=== PATIENT | female | born 2000 | race Caucasian/White ===

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

== ENCOUNTER → 2022-01-04 14:05 | Outpatient (BNVA) | payer MEDICAID, SELFPAY | PROVIDERS: Visit Provider Advanced Practice Midwife | DX: Z32.01 Encounter for pregnancy test, result positive (principal); Z36.3 Encounter for antenatal screening for malformations | CPT/HCPCS: 81025; 99212 ==

== ENCOUNTER 2022-01-12 13:00 | Outpatient (REF) | payer MEDICAID, SELFPAY ==
--- NOTE | ~2022-01-12 | US_ITS ---
EXAMINATION: OBSTETRICAL ULTRASOUND, FIRST TRIMESTER HISTORY: 21-year-old at the 8.5 weeks of gestation LMP: 11/12/2021 COMPARISON: None TECHNIQUE: Real time transabdominal imaging with color and M-mode Doppler. FINDINGS: A single, live IUP CRL of 18.9 mm c/w 8.3wks is noted. Heart Rate: 169 beats per minute. Both maternal ovaries are seen and appear normal. GESTATIONAL AGE: 1. GA from LMP: 8.7 wks 2. GA from AUA: 8.3 wks ESTIMATED DATE OF DELIVERY: 1. VALORIE from LMP: 08/19/2022 2. VALORIE from AUA: 08/21/2022 US/US OB <= 14 weeks fetus IMPRESSION: 1. A single live IUP 2. Size equals dates 3. Normal ovaries Follow-up at approximately 12 weeks of gestation is suggested (not scheduled). Thank you very much for this referral. This note was generated with a voice recognition program. Please excuse any errors which may have been overlooked during my review of this note. Sometimes these errors may affect the content or meaning of a given sentence.
== END 2022-01-12 13:01 | disposition home or self-care (01) ==
LOC: HO.US 13:00
PROVIDERS: Visit Provider Advanced Practice Midwife
DX: O35.9XX0 Maternal care for (suspected) fetal abnormality and damage, unspecified, not applicable or unspecified (principal); Z3A.08 8 weeks gestation of pregnancy
CPT/HCPCS: 76801

== ENCOUNTER → 2022-01-22 14:23 | Outpatient (BNVA) | payer MEDICAID, SELFPAY | PROVIDERS: Visit Provider Advanced Practice Midwife | DX: Z13.89 Encounter for screening for other disorder (principal) ==

== ENCOUNTER → 2022-02-05 13:55 | Outpatient (BNVA) | payer MEDICAID, SELFPAY | PROVIDERS: Visit Provider Advanced Practice Midwife | DX: Z32.01 Encounter for pregnancy test, result positive (principal); Z36.3 Encounter for antenatal screening for malformations; O26.891 Other specified pregnancy related conditions, first trimester; I95.1 Orthostatic hypotension; Z3A.11 11 weeks gestation of pregnancy; Z82.3 Family history of stroke | CPT/HCPCS: 99212 ==

== ENCOUNTER 2022-02-06 17:53 | Emergency (ER) | payer MEDICAID, SELFPAY ==
--- NOTE | 2022-02-06 19:13 | ECG_ITS ---
Test Reason : SYNCOPE Blood Pressure : / mmHG Vent. Rate : 071 BPM Atrial Rate : 071 BPM P-R Int : 104 ms QRS Dur : 088 ms QT Int : 392 ms P-R-T Axes : 000 086 -38 degrees QTc Int : 425 ms Sinus rhythm with short NC T wave abnormality, consider inferior ischemia T wave abnormality, consider anterior ischemia Abnormal ECG When compared with ECG of 11-NOV-2019 15:07, T wave inversion now evident in Inferior leads T wave inversion now evident in Anterior leads Referred By: Generic ED Physician Electronically Signed By:King Helton
[2022-02-06 19:14] VITALS: BP 98/60; PULSE 64; RESP 19; TEMP 36.8; O2SAT 98; BMI 18.8
[2022-02-06 19:31] LABS: MANUAL DIFF FLAG NO
[2022-02-06 19:34] LABS: Basophils Percent Auto 0.4 % (0-2); Eosinophils Percent Auto 0.3 % (0-4); Hematocrit 34.7 % (37.0-47.0); Hemoglobin 11.9 g/dl (12.0-16.0); Imm Gran Abs Auto 0.04 X10*3/uL (0.00-0.03); Imm Gran Pct Auto 0.4 % (0.0-0.4); Lymphocytes Absolute Auto 1.4 X10*3/uL (1.2-4.9); Lymphocytes Percent Auto 14.1 % (20-40); Mean Corpuscular HGB Conc 34.3 g/dl (31.0-35.0); Mean Corpuscular Hemoglobin 32.2 pg (27.0-33.0); Mean Corpuscular Volume 93.8 fL (80.0-98.0); Mean Platelet Volume 10.2 fL (9.4-12.3); Monocytes Absolute Auto 0.6 X10*3/uL (0.1-1.2); Monocytes Percent Auto 5.9 % (2-11); Neutrophils Absolute Auto 7.5 x10*3/uL (2.0-8.3); Neutrophils Percent Auto 78.9 % (45-73); Platelet Count 190 X10*3/uL (160-400); Red Cell Distribution Width 12.3 % (11.0-16.0); White Blood Count 9.6 X10*3/uL (4.8-10.8)
[2022-02-06 19:45] LABS: Anion Gap 11 (12-20); Blood Urea Nitrogen 8 mg/dL (9-16); Calcium 8.9 mg/dL (8.4-10.2); Carbon Dioxide 22 mmol/L (22-29); Chloride 105 mmol/L (96-108); Creatinine Clr Calc Pharmacy 127.4; Estimated Glomerular Filt Rate > 60; Glucose Random 78 mg/dL (60-115); Potassium 3.7 mmol/L (3.3-5.1); Sodium 134 mmol/L (135-145)
[2022-02-06 19:51] LABS: Troponin-I High Sensitivity < 3.5 ng/L (<3.5-17.0)
== END 2022-02-06 20:05 | disposition left against medical advice (07) ==
PROVIDERS: Emergency Provider Emergency Medicine
DX: O26.899 Other specified pregnancy related conditions, unspecified trimester (principal); R55 Syncope and collapse; Z3A.00 Weeks of gestation of pregnancy not specified
CPT/HCPCS: 36415; 80048; 84484; 85025; 93005; 99282; 99283

== ENCOUNTER 2022-02-19 08:02 | Outpatient (REF) | payer MEDICAID, SELFPAY ==
[2022-02-19 16:02] LABS: CT PCR NOT DETECTED (Not Detect.); NG PCR NOT DETECTED (Not Detect.)
== END 2022-02-19 08:03 | disposition home or self-care (01) ==
LOC: HO.LAB 08:02
PROVIDERS: Visit Provider Advanced Practice Midwife
DX: Z34.92 Encounter for supervision of normal pregnancy, unspecified, second trimester (principal); Z3A.13 13 weeks gestation of pregnancy
CPT/HCPCS: 81003; 87491; 87591; 99212

== ENCOUNTER 2022-02-23 12:28 | Outpatient (REF) | payer MEDICAID, SELFPAY ==
--- NOTE | ~2022-02-23 | US_ITS ---
EXAMINATION: OBSTETRICAL ULTRASOUND, FIRST TRIMESTER HISTORY: 22-year-old at 14.5 weeks of gestation NT screening COMPARISON: 01/12/2022 TECHNIQUE: Real time transabdominal imaging with color and M-mode Doppler. FINDINGS: A single, live IUP CRL of 95.2 mm c/w 15.3wks is noted. Heart Rate: 150 beats per minute. BPD: 2.9cm 15 w3 d FL 1.7 cm 15w1d GA by sono 15 w4 d NT was 1.63.mm. NB Present The embryo appears sonographically wnl for this GA. Both maternal ovaries are seen and appear normal. GESTATIONAL AGE: 1. Established GA: 14.5 wks 2. GA from AUA: 15.4 wks ESTIMATED DATE OF DELIVERY: 1. Established VALORIE: 08/19/2022 2. VALORIE from AUA: 08/15/2022 US/US OB 1T nuc measure IMPRESSION: 1. A single live IUP 2. AUA is consistent with the 15.4 weeks which corresponds well with her assigned gestational age of 14.5 weeks. 3. Although she is too far along for an official NT measurement, the nuchal area appeared within normal limits. 4. The embryo appears sonographically normal for this age. MFM Consultation: I reviewed the ultrasound findings along with significance of NT measurement. The NT of less than 3mm is generally reassuring. However, the sensitivity for T21 detection is only 60%. I reviewed the availability of serum aneuploidy screening which includes cell-free DNA and placental protein based tests. I discussed the sensitivity, false-positive rate, and other limitations associated with each test. I also reviewed the availability of invasive diagnostic tests that are associated small but definite risk of miscarriage. We also reviewed the differences between screening tests and diagnostic tests. After our discussion, she opted for the First trimester screening that is based on cell-free DNA or non-invasive testing (NIPT). The result will be faxed to your office in approximately 7 days. A follow up at 18 weeks for survey has been scheduled. Thank you very much for this referral. Total time 30 minutes. The time spent was devoted to counseling the patient about the disease and diagnosis, coordinating care including reviewing her records, pertinent lab data and studies, as well as discussing diagnostic evaluation and workup, plan therapeutic interventions and future disposition of care. This includes any additional research needed to obtain further information in formulating the plan of care of this patient. This note was generated with a voice recognition program. Please excuse any errors which may have been overlooked during my review of this note. Sometimes these errors may affect the content or meaning of a given sentence.
[2022-02-23 14:04] LABS: Hematocrit 38.4 % (37.0-47.0); Hemoglobin 13.3 g/dl (12.0-16.0); Mean Corpuscular HGB Conc 34.6 g/dl (31.0-35.0); Mean Corpuscular Hemoglobin 32.3 pg (27.0-33.0); Mean Corpuscular Volume 93.2 fL (80.0-98.0); Mean Platelet Volume 10.5 fL (9.4-12.3); Platelet Count 224 X10*3/uL (160-400); Red Blood Count 4.12 X10*6/uL (4.20-5.50); Red Cell Distribution Width 12.6 % (11.0-16.0); White Blood Count 8.9 X10*3/uL (4.8-10.8)
[2022-02-23 14:38] LABS: Syphilis Screen Nonreactive (Nonreactive)
[2022-02-23 15:36] LABS: Amphetamine Screen Urine Not Detected (Not Detect); Barbiturates, Urine Not Detected (Not Detect); Benzodiazepines Screen Urine Not Detected (Not Detect); Cannabinoid Screen Urine Not Detected (Not Detect); Cocaine Screen Urine Not Detected (Not Detect); Fentanyl, urine Not Detected (Not Detect); Opiate Screen Urine Not Detected (Not Detect); Phencyclidine Screen Urine Not Detected (Not Detect)
[2022-02-26 08:34] LABS: HBsAGNum1 0.29 S/CO (0.00-0.99); HIV AB/AG Nonreactive (Nonreactive); HIV Num 1 0.07 S/CO (0.00-0.99); Hepatitis B Surface Antigen Negative (Negative); ~HepC Num1 0.11 S/CO (0.00-0.79); ~Hepatitis C Antibody Nonreactive (Nonreactive)
[2022-02-27 17:46] LABS: Varicella IgG Antibody <135.00 index
== END 2022-02-23 12:29 | disposition home or self-care (01) ==
LOC: HO.US 12:28
PROVIDERS: Visit Provider Advanced Practice Midwife
DX: O35.9XX0 Maternal care for (suspected) fetal abnormality and damage, unspecified, not applicable or unspecified (principal); Z82.3 Family history of stroke
CPT/HCPCS: 76813; 80307; 85027; 86762; 86780; 86787; 86803; 86850; 86900; 86901; 87086; 87340; 87389

== ENCOUNTER → 2022-03-19 14:15 | Outpatient (BNVA) | payer MEDICAID, SELFPAY | PROVIDERS: Visit Provider Advanced Practice Midwife | DX: Z34.82 Encounter for supervision of other normal pregnancy, second trimester (principal); Z36.3 Encounter for antenatal screening for malformations; Z3A.17 17 weeks gestation of pregnancy | CPT/HCPCS: 99212 ==

== ENCOUNTER 2022-03-30 12:50 | Outpatient (REF) | payer MEDICAID, SELFPAY ==
--- NOTE | ~2022-03-30 | US_ITS ---
EXAMINATION: US OBSTETRICAL CLINICAL INFORMATION: 22-year-old at 19.5 weeks of gestation Suspected anomaly COMPARISON: 02/23/2022 TECHNIQUE: Real-time transabdominal ultrasound was performed using C1-5 megahertz transducer. FINDINGS: A single, active, fetus is seen in vertex presentation. The placenta is anterior without previa, and the amniotic fluid volume is wnl. MEASUREMENTS: 1. Biparietal Diameter: 4.9 cm; 21.0 wks 2. Occipital Frontal Diameter: 6.5 cm 3. Head Circumference: 18.6 cm; 21.0 wks 4. Abdominal Circumference: 15.1 cm; 20.3 wks 5. Femur Length: 3.3 cm; 20.1 wks 6. Humerus Length: 3.1 cm; 20.1 wks 7. Tibia Length: 2.8 cm; 20.2 wks 8. Ulna Length: 2.8 cm; 20.2 wks 9. Lateral ventricle: 0.7 cm 10. Cerebellum: 2.1 cm; 20.6 wks 11. Cisterna Magna: 0.5 cm 12. Nuchal Fold: 5.4 mm 13. Heart Rate: 144 beats per minute Rt ovary: normal Lt ovary: normal Cervical length 3.2 cm on T/A. GESTATIONAL AGE: 1. Established GA: 19.5 wks 2. GA from [facility]: 20.5 wks ESTIMATED DATE OF DELIVERY: 1. Established VALORIE: 08/19/2022 2. VALORIE from [facility]: 08/12/2022 ANATOMY: The visualized anatomy includes but not limited to: 1. Cranium: Normal 2. Intracranial anatomy: cavum septum pellucidi, lateral ventricles, choroid plexus, cerebellum, posterior fossa, third and fourth ventricles. 3. face: orbits, lip/palate, profile, nasal bone 4. Heart: four-chamber view of the heart, ventricular septum, foramen ovale, pulmonary vein, left and right outflow tracts, three-vessel view, 3 vessel trachea view, aortic and ductal arches, situs.. 5. Diaphragm: Normal 6. Abdominal wall: Normal 7. Cord Insertion: Normal 8. Spine: Cervical, thoracic, lumbar, sacral. 9. Stomach: Normal size and shape 10. Right Kidney: Normal 11. Left Kidney: Normal 12. 3 vessel cord: Normal 13. Upper extremity: Open hands, fifth digit. 14. Lower extremity: Tibia, fibula, bilateral feet. 15. Bladder: Normal 16. Genitalia: Male, patient aware US/US OB /maternal detail IMPRESSION: 1. Single, living, intrauterine with appropriate biometry. 2. Normal survey DISCUSSION: I reviewed today's ultrasound findings. We discussed the limitations of ultrasound in diagnosing aneuploidy and other congenital abnormalities. I reviewed the differences between screening test and diagnostic test. Amniocentesis was discussed and declined. She was informed that the baseline incidence of congenital abnormalities is approximately 3-5%. Not all these conditions are diagnosable in utero. RECOMMENDATIONS: 1. Follow-up when necessary Thank you for allowing me to participate in her care. Total time 20 minutes. The time spent was devoted to counseling the patient about the disease and diagnosis, coordinating care including reviewing her records, pertinent lab data and studies, as well as discussing diagnostic evaluation and workup, plan therapeutic interventions and future disposition of care. This includes any additional research needed to obtain further information in formulating the plan of care of this patient. This note was generated with a voice recognition program. Please excuse any errors which may have been overlooked during my review of this note. Sometimes these errors may affect the content or meaning of a given sentence.
== END 2022-03-30 12:51 | disposition home or self-care (01) ==
LOC: HO.US 12:50
PROVIDERS: Visit Provider Advanced Practice Midwife
DX: O35.9XX0 Maternal care for (suspected) fetal abnormality and damage, unspecified, not applicable or unspecified (principal); Z3A.19 19 weeks gestation of pregnancy
CPT/HCPCS: 76811

== ENCOUNTER → 2022-04-20 13:46 | Outpatient (BNVA) | payer MEDICAID, SELFPAY | PROVIDERS: Visit Provider Advanced Practice Midwife | DX: O99.012 Anemia complicating pregnancy, second trimester (principal); D64.9 Anemia, unspecified; O09.292 Supervision of pregnancy with other poor reproductive or obstetric history, second trimester; O99.412 Diseases of the circulatory system complicating pregnancy, second trimester; I95.1 Orthostatic hypotension; Z3A.22 22 weeks gestation of pregnancy | CPT/HCPCS: 81002; 99212 ==

== ENCOUNTER → 2022-05-21 14:55 | Outpatient (BNVA) | payer MEDICAID, SELFPAY | PROVIDERS: Visit Provider Advanced Practice Midwife | DX: Z34.82 Encounter for supervision of other normal pregnancy, second trimester (principal); Z68.26 Body mass index [BMI] 26.0-26.9, adult | CPT/HCPCS: 81003; 99212 ==

== ENCOUNTER 2022-06-07 08:47 | Outpatient (REF) | payer MEDICAID, SELFPAY ==
[2022-06-07 10:40] LABS: Hematocrit 37.3 % (37.0-47.0); Hemoglobin 12.7 g/dl (12.0-16.0); Mean Corpuscular Volume 99.7 fL (80.0-98.0); Platelet Count 208 X10*3/uL (160-400); Red Blood Count 3.74 X10*6/uL (4.20-5.50); Red Cell Distribution Width 12.6 % (11.0-16.0); White Blood Count 9.1 X10*3/uL (4.8-10.8)
[2022-06-07 11:12] LABS: Glucose 1 Hour PP 50gm Dose 66 mg/dL (60-140)
[2022-06-08 08:30] LABS: Syphilis Screen Nonreactive (Nonreactive)
== END 2022-06-07 08:48 | disposition home or self-care (01) ==
LOC: HO.LAB 08:47
PROVIDERS: Visit Provider Advanced Practice Midwife
DX: Z34.93 Encounter for supervision of normal pregnancy, unspecified, third trimester (principal); Z3A.29 29 weeks gestation of pregnancy
CPT/HCPCS: 36415; 85027; 86780; 99212

== ENCOUNTER → 2022-07-05 12:56 | Outpatient (BNVA) | payer MEDICAID, SELFPAY | PROVIDERS: Visit Provider Advanced Practice Midwife | DX: O99.013 Anemia complicating pregnancy, third trimester (principal); D64.9 Anemia, unspecified; O26.53 Maternal hypotension syndrome, third trimester; O09.293 Supervision of pregnancy with other poor reproductive or obstetric history, third trimester; Z3A.33 33 weeks gestation of pregnancy | CPT/HCPCS: 99212 ==

== ENCOUNTER 2022-07-20 09:49 | Outpatient (REF) | payer MEDICAID, SELFPAY ==
[2022-07-21 13:37] LABS: CT PCR NOT DETECTED (Not Detect.)
[2022-07-21 13:38] LABS: NG PCR NOT DETECTED (Not Detect.)
== END 2022-07-20 09:50 | disposition home or self-care (01) ==
LOC: HO.LNP 09:49
PROVIDERS: Visit Provider Advanced Practice Midwife
DX: O99.013 Anemia complicating pregnancy, third trimester (principal); O26.893 Other specified pregnancy related conditions, third trimester; O26.843 Uterine size-date discrepancy, third trimester; I95.1 Orthostatic hypotension; Z3A.35 35 weeks gestation of pregnancy; Z23 Encounter for immunization; Z11.3 Encounter for screening for infections with a predominantly sexual mode of transmission
CPT/HCPCS: 81003; 87081; 87491; 87591; 90471; 90715; 99212

== ENCOUNTER 2022-07-23 15:38 | Outpatient (REF) | payer MEDICAID, SELFPAY ==
--- NOTE | ~2022-07-23 | US_ITS ---
EXAMINATION: US OBSTETRICAL FOLLOW UP WITH BIOPHYSICAL PROFILE CLINICAL INFORMATION: Uterine size/date discrepancy COMPARISON: Previous OB ultrasound most recent 03/30/2022 TECHNIQUE: Real time transabdominal imaging with color and M-mode Doppler. POSITION: Cephalic PLACENTA: Anterior. Grade 2-3. AMNIOTIC FLUID INDEX: 16.9 cm MEASUREMENTS: The initial dating ultrasound dated provided an estimated date of delivery of 08/19/2022. This would project today to a of 36 weeks 1 day. biometric measurements are as follows: Biparietal Diameter: 9 cm (36 weeks 4 days) Occipital Frontal Diameter: 11.3 cm (36 weeks 2 days) Head Circumference: 32.7 cm (37 weeks 1 day) Abdominal Circumference: 31.3 cm (35 weeks 2 days) Femur Length: 7 cm (35 weeks 6 days) The standard deviation for the above measurements is +/- 3 weeks. The measurements are concordant and size agrees with dates. ESTIMATED WEIGHT: The EFW is 2747 grams +/- 402 grams (6 pounds lbs 1 oz +/- 14 oz). This is at the 39th percentile. BIOPHYSICAL PROFILE: Biophysical profile is performed over 30 minutes with assessment of breathing, gross body movement, tone, and qualitative amniotic fluid volume. Each matrix is scored 0 or 2, depending if the metric is present. Maximum total score possible is 8. Motion: 2 Tone: 2 Breathin Amniotic Fluid: 2 Total score: 8 HR: 139 bpm US/US OB follow up IMPRESSION: 1. Single intrauterine gestation in cephalic position with anterior placenta. 2. EFW: 6 lbs. 1 oz. which is 39th percentile for patient's gestational age 3. CASS: 16.9 cm. 4. BPP score: 8 (scale 0-8).
== END 2022-07-23 15:39 | disposition home or self-care (01) ==
LOC: HO.US 15:38
PROVIDERS: Visit Provider Advanced Practice Midwife
DX: O26.843 Uterine size-date discrepancy, third trimester (principal); Z3A.36 36 weeks gestation of pregnancy
CPT/HCPCS: 76816

== ENCOUNTER → 2022-07-27 11:35 | Outpatient (BNVA) | payer MEDICAID, SELFPAY | PROVIDERS: Visit Provider Advanced Practice Midwife | DX: Z34.83 Encounter for supervision of other normal pregnancy, third trimester (principal); Z3A.36 36 weeks gestation of pregnancy | CPT/HCPCS: 81003; 99212 ==

== ENCOUNTER → 2022-08-10 13:37 | Outpatient (BNVA) | payer MEDICAID, SELFPAY | PROVIDERS: Visit Provider Advanced Practice Midwife | DX: Z34.93 Encounter for supervision of normal pregnancy, unspecified, third trimester (principal); Z3A.38 38 weeks gestation of pregnancy | CPT/HCPCS: 81003; 99212 ==

== ENCOUNTER → 2022-08-17 12:50 | Outpatient (BNVA) | payer MEDICAID, SELFPAY | PROVIDERS: Visit Provider Advanced Practice Midwife | DX: O26.53 Maternal hypotension syndrome, third trimester (principal); O09.213 Supervision of pregnancy with history of pre-term labor, third trimester; O69.0XX0 Labor and delivery complicated by prolapse of cord, not applicable or unspecified; Z3A.39 39 weeks gestation of pregnancy | CPT/HCPCS: 99212 ==

== ENCOUNTER → 2023-02-27 14:29 | Outpatient (BNVA) | payer MEDICAID, SELFPAY | PROVIDERS: Visit Provider Advanced Practice Midwife | DX: Z30.09 Encounter for other general counseling and advice on contraception (principal); Z63.79 Other stressful life events affecting family and household; Z39.1 Encounter for care and examination of lactating mother | CPT/HCPCS: 99212 ==

== ENCOUNTER 2023-06-10 13:45 | Outpatient (REF) | payer MEDICAID, SELFPAY ==
[2023-06-10 16:04] LABS: MANUAL DIFF FLAG NO
[2023-06-10 16:17] LABS: Basophils Absolute Auto 0.1 X10*3/uL (0.0-0.2); Basophils Percent Auto 0.8 % (0-2); Eosinophils Absolute Auto 0.2 X10*3/uL (0.0-0.4); Eosinophils Percent Auto 2.9 % (0-4); Hematocrit 41.4 % (37.0-47.0); Hemoglobin 13.5 g/dl (12.0-16.0); Imm Gran Abs Auto 0.02 X10*3/uL (0.00-0.03); Imm Gran Pct Auto 0.3 % (0.0-0.4); Lymphocytes Absolute Auto 1.7 X10*3/uL (1.2-4.9); Lymphocytes Percent Auto 29.5 % (20-40); Mean Corpuscular HGB Conc 32.6 g/dl (31.0-35.0); Mean Corpuscular Hemoglobin 30.8 pg (27.0-33.0); Mean Corpuscular Volume 94.5 fL (80.0-98.0); Mean Platelet Volume 10.7 fL (9.4-12.3); Monocytes Absolute Auto 0.5 X10*3/uL (0.1-1.2); Monocytes Percent Auto 7.6 % (2-11); Neutrophils Absolute Auto 3.5 x10*3/uL (2.0-8.3); Neutrophils Percent Auto 58.9 % (45-73); Platelet Count 250 X10*3/uL (160-400); Red Blood Count 4.38 X10*6/uL (4.20-5.50); Red Cell Distribution Width 12.2 % (11.0-16.0); White Blood Count 5.9 X10*3/uL (4.8-10.8)
[2023-06-11 01:58] LABS: Alanine Aminotransferase 10 U/L (0-31); Albumin Level 4.5 g/dL (3.5-5.0); Alkaline Phosphatase 89 U/L (39-117); Anion Gap 10 (12-20); Aspartate Amino Transferase 15 U/L (5-31); Bilirubin Total 0.6 mg/dL (0.0-1.0); Blood Urea Nitrogen 12 mg/dL (9-16); Calcium 8.7 mg/dL (8.4-10.2); Carbon Dioxide 27 mmol/L (22-29); Chloride 106 mmol/L (96-108); Cholesterol 173 mg/dL; Estimated Glomerular Filt Rate > 60; Glucose Random 75 mg/dL (60-115); HDL Cholesterol 68 mg/dL; LDL Cholesterol Calculated 98 mg/dl; Potassium 3.8 mmol/L (3.3-5.1); Sodium 139 mmol/L (135-145); Total Protein 7.4 g/dL (6.5-8.0); Triglycerides 39 mg/dL
[2023-06-11 02:20] LABS: TSH reflex Free T4 1.61 uIU/mL (0.32-4.0); Vitamin D 25-OH Total 28.1 ng/mL (>30)
[2023-06-11 04:34] LABS: Syphilis Screen Nonreactive (Nonreactive)
[2023-06-11 04:44] LABS: ~HepC Num1 0.14 S/CO (0.00-0.79); ~Hepatitis C Antibody Nonreactive (Nonreactive)
[2023-06-11 04:49] LABS: HBS Num1 19.69 mIU/mL (0-7.99); HBc Num1 0.25 S/CO (0.00-0.79); HBsAGNum1 0.61 S/CO (0.00-0.99); HIV AB/AG Nonreactive (Nonreactive); HIV Num 1 0.08 S/CO (0.00-0.99); Hepatitis B Core Antibody Nonreactive (Nonreactive); Hepatitis B Surface Antigen Negative (Negative); ~Hepatitis B Surface Antibody REACTIVE (Nonreactive)
[2023-06-11 05:25] LABS: Estimated Average Glucose 88 mg/dL; Hemoglobin A1c % 4.7 %
[2023-06-11 07:40] LABS: CT PCR NOT DETECTED (Not Detect.); NG PCR NOT DETECTED (Not Detect.)
== END 2023-06-10 13:46 | disposition home or self-care (01) ==
LOC: HO.HHCL 13:45
PROVIDERS: Visit Provider Student in an Organized Health Care Education/Training Program
DX: Z00.00 Encounter for general adult medical examination without abnormal findings (principal); Z11.4 Encounter for screening for human immunodeficiency virus [HIV]; Z11.3 Encounter for screening for infections with a predominantly sexual mode of transmission
CPT/HCPCS: 0353U; 80053; 80061; 82306; 83036; 84443; 85025; 86704; 86706; 86780; 86803; 87340; 87389

== ENCOUNTER 2023-11-14 16:37 | Outpatient (REF) | payer MEDICAID, SELFPAY ==
--- NOTE | ~2023-11-14 | XR_ITS ---
EXAMINATION: XR HAND, LEFT CLINICAL INFORMATION: Injury pointer finger of left hand. COMPARISON: 10/02/2016. TECHNIQUE: PA, lateral, and oblique views of the left hand. FINDINGS: Bone mineralization is normal. Joint spaces and alignment are preserved. No displaced fracture of the 2nd digit identified. XR/XR hand LT min 3V IMPRESSION: No displaced fracture of the 2nd digit identified. Recommend follow up images in 10-14 days if fracture is suspected.
== END 2023-11-14 16:38 | disposition home or self-care (01) ==
LOC: HO.XRAY 16:37
PROVIDERS: Visit Provider Nurse Practitioner Family
DX: S69.92XA Unspecified injury of left wrist, hand and finger(s), initial encounter (principal); X58.XXXA Exposure to other specified factors, initial encounter; Y93.9 Activity, unspecified; Y92.9 Unspecified place or not applicable; Y99.9 Unspecified external cause status
CPT/HCPCS: 73130

== ENCOUNTER 2024-03-15 19:27 | Emergency (ER) | payer MEDICAID, SELFPAY ==
--- NOTE | ~2024-03-15 | XR_ITS ---
EXAMINATION: XR KNEE, LEFT CLINICAL INFORMATION: Twisted knee COMPARISON: Left knee 08/15/2021 TECHNIQUE: Four views of the left knee. FINDINGS: No fracture or joint effusion. Alignment is anatomic. Joint spaces are maintained. No abnormal soft tissue calcification. XR/XR knee LT 3V IMPRESSION: Normal left knee.
[2024-03-15 19:41] VITALS: BP 105/54; PULSE 65; RESP 20; TEMP 36.6; O2SAT 98; BMI 18.4
[2024-03-15] MEDS: Acetaminophen 325 MG TABLET 975 MG PO (19:46)
--- OUTSIDE RECORDS SUMMARY | 2024-03-16 00:58 | XMS_ITS | Continuity of Care Document ---
Author Organization [facility] Address [address] [place] [id number]- Care Team Providers Care Assistant Analyst Name Role Phone Charly JORDAN, Kay Primary Care Physician Encounter [facility] Date(s): 08/20/22 - 12/11/[address] [address] Discharge Disposition: A-D/C Home Attending Physician: Mike Lozano MD Admitting Physician: Mike Lozano MD Referring Physician: Mike Lozano MD Allergies, Adverse Reactions, Alerts No Known Allergies Immunizations Given and Recorded Vaccine Date Status Refusal Reason tetanus/diphtheria/pertussis, acel(Tdap) 07/20/22 Recorded tetanus/diphtheria/pertussis, acel(Tdap) 08/20/19 Recorded tetanus/diphtheria/pertussis, acel(Tdap) 06/19/13 Recorded Meningococcal Conjugate Vaccine 07/12/21 Recorded Meningococcal Conjugate Vaccine 06/19/13 Recorded SARS-CoV-2 (COVID-19) mRNA BNT-162b2 vac 04/11/21 Recorded SARS-CoV-2 (COVID-19) mRNA BNT-162b2 vac 03/21/21 Recorded influenza virus vaccine, inactivated 09/24/16 Price rded influenza virus vaccine, inactivated 11/11/10 Price rded influenza virus vaccine, inactivated 09/16/10 Price rded Human Papillomavirus Vaccine 12/22/15 Recorded Human Papillomavirus Vaccine 09/30/14 Recorded Human Papillomavirus Vaccine 06/19/13 Recorded influenza virus vaccine, live 09/30/14 Recorded Hepatitis A Pediatric Vaccine 06/06/12 Recorded Varicella Virus Vaccine 02/17/07 Recorded Varicella Virus Vaccine 03/11/03 Recorded Measles/Mumps/Rubella Virus Vaccine 02/17/07 Recor ded Medications Slime 30 mg oral tablet 1 tablet = 30 mg, By Mouth, Once, # 1 tablet, 0 Refills, Soft Stop, 09/11/22 13:25:00 EST, Tablet, [facility], Partial fill upon patient request if the prescription is for a schedule IIopioid drug., 170, cm, 09/11/22 13:00:00 EST, Heigh... Start Date: 09/11/22 Status: Ordered PNV By Mouth, Daily, 0 Refills, Maintenance, 07/25/22 14:20:00 EDT, Partial fill upon patient request if the prescription is for a schedule II opioid drug. Start Date: 07/25/22 Status: Ordered Patient Care team information Care Team Personnel Name: Kay Parks MD Position: [facility] General Pediatrics MD Member Role: PCP Address: Address: [address] [place] [address] Pediatric & [place] [address]- Care Team Related Persons Name: RALPH MARTINEZ Address: [facility] Address: [address] Name: HONEY MÉNDEZ Address: home [address] [place] [address] Name: JEFF MÉNDEZ Address: [place] [address]
--- OUTSIDE RECORDS SUMMARY | 2024-03-16 00:58 | XMS_ITS | Continuity of Care Document ---
Author Organization [facility] Address [address] [place] [address]- Care Team Providers Care It Portfolio Manager Name Role Phone Kay Parks MD Primary Care Physician [place] [facility] [place] 08[place]18[place] - 08/20/[address] [address] Discharge Disposition: A-D/C Home Attending Physician: Mike Lozano MD Admitting Physician: Mike Lozano MD Referring Physician: Mike Lozano MD Allergies, Adverse Reactions, Alerts No Known Allergies Medications acetaminophen 325 mg oral tablet 650 mg, By Mouth, Every 4 hours, PRN, (1-3), may give 325mg per patient preference and re-dose [id number] within 4 hours, if needed. Patient should only receive a total of 650mg of Acetaminophen every 4 hours., # 90 tablet, Refills 0, Tot. Refills 0... Start Date: 08/20/22 Status: Ordered Acetaminophen Tablet 650 mg, Tablet, By Mouth, Every 4 hours, PRN for Pain , Mild, (1-3), may give 325mg per patient preference and re-dose with 325mg within 4 hours, if needed. Patient should only receive a total of 650mg of Acetaminophen every 4 hours., Routine, 08/18... Start Date: 08/18/22 Stop Date: 09/17/22 Status: Ordered docusate sodium 100 mg oral capsule 100 mg, 1, capsule, By Mouth, 2 times a day, PRN, # 100 capsule, Refills 0, Tot. Refills 0, Maintenance, Constipation, 08/20/22 15:04:00 EDT, Route to Pharmacy Electronically, [facility], Partial fill upon patient request if the prescrip... Start Date: 08/20/22 Status: Ordered ibuprofen 800 mg oral tablet 800 mg, 1, tablet, By Mouth, Every 8 hours, PRN, (4-6), may give 400mg per patient preference and re-dose with 400mg within 8 hours if needed. Patient should only receive a total of 800mg of Ibuprofen every 8 hours., # 30 tablet, Refills 0, Tot. Ref... Start Date: 08/20/22 Status: Ordered Ibuprofen Tablet 800 mg, Tablet, By Mouth, Every 8 hours, PRN for Pain , Moderate, (4-6), may give 400mg per patientpreference and re-dose with 400mg within 8 hours if needed. Patient should only receive a total of 800mg of Ibuprofen every 8 hours., Routine, ... Start Date: 08/18/22 Stop Date: 09/01/22 Status: Ordered PNV By Mouth, Daily, 0 Refills, Maintenance, 07/25/22 14:20:00 EDT, Partial fill upon patient request if the prescription is for a schedule II opioid drug. Start Date: 07/25/22 Status: Ordered Procedures Procedure Date Related Diagnosis Body Site Status None Completed Vital Signs Most recent to oldest [Reference Range]: 1 2 3 Height 170 cm (08/20/22 7:20 AM) 170 cm (08/20/22 12:20 AM) 170 cm (08/19/22 4:59 PM) Weight 64 kg (08/18/22 4:00 PM) 64 kg (08/18/22 3:15 PM) 64.0 kg (08/18/22 1:40 PM) Oxygen Saturation [94-100 %] 98 % (08/19/22 4:30 AM) 98 % (08/19/22 12:02 AM) 97 % (08/18/22 3:00 PM) Pulse Rate [55-90 bpm] 55 bpm (08/20/22 7:20 AM) 50 bpm *L* (08/20/22 12:20 AM) 64 bpm (08/19/22 4:59 PM) Body Mass Index [18.5-24.99 kg/m2] 22.15 kg/m2 (08/18/22 3:15 PM) Blood Pressure [90-138/55-84 mm Hg] 108/51mm Hg (08/20/22 7:20 AM) 104/61mm Hg (08/20/22 12:20 AM) 100/59mm Hg (08/19/22 4:59 PM) Respiratory Rate [16-30 br/min] 20 br/min (08/20/22 4:00 PM) 20 br/min (08/20/22 4:00 PM) 18 br/min (08/20/22 9:24 AM) Temperature [96.8-100.4 DegF] 98.4 DegF (08/20/22 7:20 AM) 98.1 DegF (08/20/22 12:20 AM) 97.8 DegF (08/19/22 4:59 PM) Mode of Delivery (Oxygen) Room air (08/19/22 4:30 AM) Room air (08/19/22 12:02 AM) Room air (08/18/22 1:54 PM) Blood pressure sites Arm, right (08/19/22 4:59 PM) Arm, right (08/19/22 11:14 AM) Arm, right (08/18/22 7:38 PM) Temperature Route Oral (08/20/22 7:20 AM) Oral (08/20/22 12:20 AM) Oral (08/19/22 4:59 PM) Dry Weight 64 kg (08/18/22 3:15 PM) Weight Obtained Via Standing scale (08/18/22 1:40 PM) Patient Care team information Personnel Name: Kay Parks MD Address: Address: [address] [facility] Adolescent Medicine [place], [place] [address]
--- OUTSIDE RECORDS SUMMARY | 2024-03-16 00:58 | XMS_ITS | Continuity of Care Document ---
Author Organization [facility] Address [address] [address]- Care Team Providers Care Turbo Electric Operator Name Role Phone Charly JORDAN, Kay Primary Care Physician [phone] Encounter [facility] Date(s): 08/21/22 - 11/01/[facility] [address] [address]- Attending Physician: Not on Staff, Attending MD Referring Physician: Sonia Pretty CNM Allergies, Adverse Reactions, Alerts No Known Allergies [...] Refills, Soft Stop, 09/11/22 13:25:00 EST, Tablet, [facility], Partial fill upon [...] Team Personnel Name: Kay Parks MD Position: [facility] General Pediatrics MD Member Role: PCP Address: Address: [address] [place] [address] Pediatric & [place] [address]- Care Team Related Persons Name: RALPH MARTINEZ Address: [employer] Address: [place] [id number] [place] Address: temporary 0 Name: HONEY MÉNDEZ Address: [address] [address] Name: JEFF MÉNDEZ Address: [address] [address]
--- OUTSIDE RECORDS SUMMARY | 2024-03-16 00:58 | XMS_ITS | Continuity of Care Document ---
Author Organization [facility] Address [address] [place] [address]- Care Team Providers Care Malthouse Laborer Name Role Phone Charly JORDAN, Kay Primary Care Physician [place] [facility] [place]s): 07/25/22 - 07/25/[address] [address] Discharge Disposition: A-D/C Home Attending Physician: Padma Abraham MD Admitting Physician: Padma Abraham MD Referring Physician: Padma Abraham MD Allergies, Adverse Reactions, Alerts No Known Allergies Medications PNV By Mouth, Daily, 0 Refills, Maintenance, 07/25/22 14:20:00 EDT, Partial fill upon patient request if the prescription is for a schedule II opioid drug. Start Date: 07/25/22 Status: Ordered Vital Signs Most recent to oldest [Reference Range]: 1 Weight 63.1 kg (07/25/22 2:05 PM) Oxygen Saturation [94-100 %] 98 % (07/25/22 2:23 PM) Blood Pressure [90-138/55-84 mm Hg] 99/6 4mm Hg (07/25/22 2:23 PM) Respiratory Rate [16-30 br/min] 18 br/mi n (07/25/22 2:23 PM) Temperature [96.8-100.4 DegF] 98.3 DegF (07/25/22 2:05 PM) Mode of Delivery (Oxygen) Room air (07/25/22 2:23 PM) Blood pressure sites Arm, left (07/25/22 2:23 PM) Temperature Route Oral (07/25/22 2:05 PM) Weight Obtained Via Standing scale (07/25/22 2:05 PM) Patient Care team information Personnel Name: Kay Parks MD Address: Address: [address] [facility] Medicine [place], [place] [address]
--- OUTSIDE RECORDS SUMMARY | 2024-03-16 00:58 | XMS_ITS | Continuity of Care Document ---
Author Organization [facility] Address [address] [address]- Care Team Providers Care Marketing Campaign Analyst Name Role Phone Kay Parks MD Primary Care Physician [phone] Encounter [facility] Date(s[facility] 10/02/22 - 11/01/22 [facility] [address] [address] Attending Physician: Regulo Goldsmith Admitting Physician: Regulo Goldsmith Referring Physician: AdmtrRegulo Allergies, Adverse Reactions, Alerts No Known Allergies [...] Refills, Soft Stop, 09/11/22 13:25:00 EST, Tablet, [facility], Partial fill upon patient request if the prescription is for a schedule IIopioid drug., 170, cm, 09/11/22 13:00:00 EST, Hezuly... Start Date: 09/11/22 Status: Ordered PNV By Mouth, Daily, 0 Refills, Maintenance, 07/25/22 14:20:00 EDT, Partial fill upon patient request if the prescription is for a schedule II opioid drug. Start Date: 07/25/22 Status: Ordered Patient Care team information Care Team Personnel Name: Kay Parsk MD Position: [facility] General Pediatrics MD Member Role: PCP Address: Address: [address] [place] [address] Pediatric & [place] [address]- Care Team Related Persons Name: MARTINEZ RALPH Address: [employer] Address: [place] [id number] [place] Address: temporary 0 Name: HONEY MÉNDEZ Address: [address] [address] Name: JEFF MÉNDEZ Address: [address] [address]
--- OUTSIDE RECORDS SUMMARY | 2024-03-16 00:58 | XMS_ITS | Continuity of Care Document ---
Author Organization [facility] Address [address] [place] [address]- Care Team Providers Care Automated Teller Manager Name Role Phone Charly JORDAN, Kay Primary Care Physician [phone] Encounter [facility] Date(s): 07/24/22 - 08/23/22 [facility] [address] [place] [address] Allergies, Adverse Reactions, Alerts No Known Allergies Medications acetaminophen 325 mg oral tablet 650 mg, By Mouth, Every 4 hours, PRN, (1-3), may give 325mg per patient preference and re-dose [id number] within 4 hours, if needed. Patient should only receive a total of 650mg of Acetaminophen every 4 hours., # 90 tablet, Refills 0, Tot. Refills 0... Start Date: 08/20/22 Status: Ordered docusate sodium 100 mg oral capsule 100 mg, 1, capsule, By Mouth, 2 times a day, PRN, # 100 capsule, Refills 0, Tot. Refills 0, Maintenance, Constipation, 08/20/22 15:04:00 EDT, Route to Pharmacy Electronically, [facility], Partial fill upon patient request if [...] Tot. Ref... Start Date: 08/20/22 Status: Ordered PNV By Mouth, Daily, 0 Refills, Maintenance, 07/25/22 14:20:00 EDT, Partial fill upon patient request if the prescription is for a schedule II opioid drug. Start Date: 07/25/22 Status: Ordered Patient Care team information Personnel Name: Kay Parks MD Address: Address: [address] [facility] Adolescent Medicine [place], [place] [address]
--- OUTSIDE RECORDS SUMMARY | 2024-03-16 00:58 | XMS_ITS | Continuity of Care Document ---
Author Organization [facility] Address [address] [place] [address]- Care Team Providers Care Gas Meter Repair Supervisor Name Role Phone Charly JORDAN, Kay Primary Care Physician [phone] Encounter [facility] Date(s): 07/21/22 - 08/26/[address] [address] Attending Physician: Lisset Tuttle CNM Admitting Physician: Lisset Tuttle CNM Referring Physician: Lisset Tuttle CNM Allergies, Adverse Reactions, Alerts No Known Allergies Medications acetaminophen 325 mg oral tablet 650 mg, By Mouth, Every 4 hours, PRN, (1-3), may give 325mg per patient preference and re-dose [id number] within 4 hours, if needed. Patient should [...] 08/20/22 15:04:00 EDT, Route to Pharmacy Electronically, [facility], Partial fill upon [...] Personnel Name: Kay Parks MD Address: Address: [address] [place] [address] Pediatric & Adolescent Medicine [place], [place] [address]
--- OUTSIDE RECORDS SUMMARY | 2024-03-16 00:58 | XMS_ITS | Continuity of Care Document ---
Author Organization [facility] Address [address] [place] [address]- Care Team Providers Care Offal Baler Name Role Phone Charly JORDAN, Kay Primary Care Physician Encounter [facility] Date(s): 08/03/22 - 08/03/[address] [address] Discharge Disposition: A-D/C Home Attending Physician: Elisha Adorno MD Admitting Physician: Elisha Adorno MD Referring Physician: Elisha Adorno MD Allergies, Adverse Reactions, Alerts No Known Allergies Medications PNV By Mouth, Daily, 0 Refills, Maintenance, 07/25/22 14:20:00 EDT, Partial fill upon patient request if the prescription is for a schedule II opioid drug. Start Date: 07/25/22 Status: Ordered Vital Signs Most recent to oldest [Reference Range]: 1 2 Height 170 cm (08/03/22 5:17 AM) Weight 63.1 kg (08/03/22 5:12 AM) Oxygen Saturation [94-100 %] 98 % (08/03/22 5:12 AM) Pulse Rate [55-90 bpm] 103 bpm *H* (08/03/22 5:12 AM) Blood Pressure [90-138/55-84 mm Hg] 101/ 60mm Hg (08/03/22 5:12 AM) Respiratory Rate [16-30 br/min] 18 br/mi n (08/03/22 5:12 AM) Temperature [96.8-100.4 DegF] 98.0 DegF (08/03/22 5:12 AM) Mode of Delivery (Oxygen) Room air (08/03/22 5:12 AM) Blood pressure sites Arm, right (08/03/22 5:17 AM) Arm, left (08/03/22 5:12 AM) Temperature Route Oral (08/03/22 5:17 AM) Oral (08/03/22 5:12 AM) Dry Weight 63.1 kg (08/03/22 5:12 AM) Weight Obtained Via Standing scale (08/03/22 5:12 AM) Dry Weight Obtained Via Standing scale (08/03/22 5:12 AM) Patient Care team information Personnel Name: Kay Parks MD Address: Address: [address] [facility] Pediatric & Adolescent Medicine [place], [place] [address]
== END 2024-03-16 01:02 | disposition left against medical advice (07) ==
LOC: HO.ED 03-16 00:56
PROVIDERS: Emergency Provider Emergency Medicine
DX: Z04.3 Encounter for examination and observation following other accident (principal); M25.562 Pain in left knee; M54.50 Low back pain, unspecified; Z53.21 Procedure and treatment not carried out due to patient leaving prior to being seen by health care provider
CPT/HCPCS: 73562; 99282; 99283

== ENCOUNTER 2024-12-01 07:44 | Emergency (ER) | payer MEDICAID, SELFPAY ==
[2024-12-01 07:53] VITALS: BP 97/58; PULSE 107; RESP 18; TEMP 36.8; O2SAT 97; BMI 19.4
--- OUTSIDE RECORDS SUMMARY | 2024-12-01 08:08 | XMS_ITS | Encounter Summary ---
Author Organization [employer] Address [address] [place] [address] [place] [address] Care Team Providers Care District Court Bailiff Name Role Phone Salud Rivas MD Primary Care Pro vider Reason for Visit * Reason Comments Annual Exam Encounter Details Date Type Department Care Team ([facility] st Contact Info) Description 11/19/2024 2:30 PM EST Office Visit [facility] [address] [place] [address] Zeus Reyes MD [address] [place] [address] Routine physical examination (Primary Dx); 19 weeks gestation of Social History Tobacco Use Types Packs/Day Years Used Date Smoking Tobacco: Never Passive Smoke Exposure: Never Smokeless Tobacco: Never Tobacco Cessation:Counseling Given: Not Answered Alcohol Use Standard Drinks/Week Comments Yes 0 (1 standard drink = 0.6 oz pur e alcohol) social Depression Answer Date Recorded Patient Health Questionnaire-9 Score 8 06/10/2023 Housing Stability Answer Date Recorded What is your housing situation today? I have terrykaushik andrews 09/02/[address] you li ve. Do you have problems with any of the following? None of the above 09/02/2023 Food Insecurity Answer Date Recorded Within the past 12 months, y ou worried that your food would run out before you got money to buy more: Never True 09/02/2023 Within the past 12 months,th e food you bought just didn't last and you didn't have enough money to get more: Never True 03/2023 Transportation Answer Date Recorded In the past 12 months, has l ack of transportation kept you from medical appts, meetings, work or from getting things needed for daily living? No 09/02/2023 Utilities Answer Date Recorded In the past 12 months, has t he electric, gas, oil or water company threatened to shut off services in your home? No 09/02/2023 Depression Answer Date Recorded Patient Health Questionnaire-2 Score 3 06/10/2023 Comments Yes Sex and Gender Information Value Date Recorded Sex Assigned at Female 08/27/2022 10:35 AM EDT Legal Sex Female 10:35 AM EDT Gender Identity Female 06/10/2023 11:53 AM EDT Sexual Orientation Straight 06/10/2023 11 :53 AM EDT documented as of this encounter Last Filed Vital Signs Vital Sign Reading Time Taken Comments Blood Pressure 105/60 11/19/2024 2:08 PM EST Pulse 97 11/19/2024 2:08 PM EST Temperature 36.3 ??C (97.4 ??F) 11/19/2024 2:08 PM ES T Respiratory Rate 17 11/19/2024 2:08 PM EST Oxygen Saturation 99% 11/19/2024 2:08 PM EST Inhaled Oxygen Concentration - - Weight 54.9 kg (121 lb) 11/19/2024 2:08 PM EST Height 172.7 cm (5' 8 ) 11/19/2024 2:08 PM EST Body Mass Index 18.4 11/19/2024 2:08 PM EST documented in this encounter Progress Notes * Zeus Cohen MD - 11/19/2024 2:30 PM EST SUBJECTIVE Beverly Chung is a 24 y.o. female who presents for Annual Exam. Patient here for a physical exam, she has no concerns or complaints. She is 20 weeks , has care at [facility]. She needs a physical for work. Works at a day care Review of Systems Constitutional: Negative for appetite change, fatigue and fever. HENT: Negative for ear pain, hearing loss and sore throat. Eyes: Negative for pain and visual disturbance. Respiratory: Negative for cough and shortness of breath. Cardiovascular: Negative for chest pain and palpitations. Gastrointestinal: Negative for abdominal pain, nausea and vomiting. Genitourinary: Negative for dysuria. Skin: Negative for rash. Neurological: Negative for dizziness and headaches. Psychiatric/Behavioral: Negative for sleep disturbance. No Known Allergies OBJECTIVE Vitals: 11/19/24 1408 BP: 105/60 BP Location: Right arm Patient Position: Sitting BP Cuff Size: Adult Pulse: 97 Resp: 17 Temp: 97.4 ??F (36.3 ??C) TempSrc: Temporal SpO2: 99% Weight: 121 lb (54.9 kg) Height: 5' 8 (1.727 m) Physical Exam Vitals reviewed. Constitutional: General: She is awake. Appearance: Normal appearance. She is well-developed. HENT: Head: Normocephalic and atraumatic. Right Ear: Tympanic membrane, ear canal and external ear normal. Left Ear: Tympanic membrane, ear canal and external ear normal. Nose: Nose normal. Mouth/Throat: Mouth: Mucous membranes are moist. Pharynx: Oropharynx is clear. Eyes: Extraocular Movements: Extraocular movements intact. Conjunctiva/sclera: Conjunctivae normal. Pupils: Pupils are equal, round, and reactive to light. Cardiovascular: Rate and Rhythm: Normal rate and regular rhythm. Pulses: Normal pulses. Heart sounds: Normal heart sounds. Pulmonary: Effort: Pulmonary effort is normal. Breath sounds: Normal breath sounds. Abdominal: General: Bowel sounds are normal. Palpations: Abdomen is soft. Musculoskeletal: General: Normal range of motion. Cervical back: Normal range of motion and neck supple. Skin: General: Skin is warm. Capillary Refill: Capillary refill takes less than 2 seconds. Neurological: General: No focal deficit present. Mental Status: She is alert and oriented to person, place, and time. Deep Tendon Reflexes: Reflexes are normal and symmetric. Psychiatric: Mood and Affect: Mood normal. Assessment/Plan Problem List Items Addressed This Visit Routine physical examination - Primary Within normal limits 19 weeks gestation of Getting care services at [facility] Taking vitamins documented in this encounter Miscellaneous Notes * Assessment & Plan Note - Zeus Cohen MD - 11/19/2024 2:24 PM EST Associated Problem(s): Routine physical examination Within normal limits * Assessment & Plan Note - Zeus Cohen MD - 11/19/2024 2:24 PM EST Associated Problem(s): 19 weeks gestation of Getting care services at [facility] Taking vitamins documented in this encounter Plan of Treatment Not on file documented as of this encounter Visit Diagnoses Diagnosis Routine physical examination- Primary Routine general medical examination at a health care facility 19 weeks gestation of documented in this encounter Additional Health Concerns Assessment Noted Time PHQ-9 Depression Total Score: 8 06/10/20 23 1:17 PM EDT documented as of this encounter Care Teams District Court Bailiff Relationship Specialty Start Date End Date Salud Rivas MD [address] [place] [address] PCP - General Internal Medicine 04/03/23 documented as of this encounter
--- OUTSIDE RECORDS SUMMARY | 2024-12-01 08:08 | XMS_ITS | Encounter Summary ---
Author Organization [employer] Address [address] [place] [address] Care Team Providers Care Lead Sustainability Specialist Name Role Phone Salud Rivas MD Primary Care Pro vider Reason for Visit * Reason Onset Date Comments Results 11/15/2023 Encounter Details Date Type Department Care Team ([facility] Contact Info) Description 11/15/2023 Telephone [facility] [address] [place] [address] Salud Rivas MD [address] [place] [address] Results Social History Tobacco Use Types Packs/Day Years Used Date Smoking Tobacco: Never Passive Smoke Exposure: Never Smokeless Tobacco: Never Alcohol Use Standard Drinks/Week Comments Yes 0 (1 standard drink = 0.6 oz pur e alcohol) social Depression Answer Date Recorded Patient Health Questionnaire-9 Score 8 06/10/2023 Housing Stability Answer Date Recorded What is your housing situation today? I have terry andrews 09/02/[address] you [...] Patient Health Questionnaire-2 Score 3 06/10/2023 Comments Unknown Sex and Gender Information Value Date Recorded Sex Assigned at Female 08/27/2022 10:35 AM EDT Legal Sex Female 10:35 AM EDT Gender Identity Female 06/10/2023 11:53 AM EDT Sexual Orientation Straight 06/10/2023 11 :53 AM EDT documented as of this encounter Miscellaneous Notes * Telephone Encounter - Hansel Fang RN - 11/20/2023 8:56 AM EST X- ray result is in pt.'s chart, please review and advise. * Telephone Encounter - Ike Brown - 11/19/2023 9:07 AM EST Tc from pt calling in regarding X-Ray results. Chief Unit Forester did advise pt on message prior. * Telephone Encounter - Temi Godinez RN - 11/18/2023 12:11 PM EST Interpretation of X-ray hand done at [facility] 11/14/23 not yet available. * Telephone Encounter - Moses Vasquez - 11/15/2023 12:22 PM EST TC from pt requesting call back regarding Results. Type of results: XRAYS Date when done: 11/14/23 Facility: [facility] Please contact at [phone] documented in this encounter Plan of Treatment Not on file documented as of this encounter Visit Diagnoses Not on filedocumented in this encounter Additional Health Concerns Assessment Noted Time PHQ-9 Depression Total Score: 8 06/10/20 1:17 PM EDT documented as of this encounter Care Teams Lead Sustainability Specialist Relationship Specialty Start Date End Date Salud Rivas MD [address] [place] [address] PCP - General Internal Medicine 04/03/23 documented as of this encounter
--- OUTSIDE RECORDS SUMMARY | 2024-12-01 08:08 | XMS_ITS | Continuity of Care Document ---
Author Organization [facility] Address [address] [place] [address]- Care Team Providers Care On Awake Counselor Name Role Phone Kay Parks MD Primary Care Physician Encounter [facility] Date(s): 10/19/24 - 11/18/24 [facility] [address] [address] Encounter Type: Triage Allergies, Adverse Reactions, Alerts No Known Allergies [...] 1 tablet, 0 Refills, Soft Stop, 09/11/22 1:25:00 PM EST, Tablet, [facility] 3, Partial fill upon patient request if the prescription is for a schedule II opioid drug., 170, cm, 09/11/22 13:00:00 EST, Height, 57.3, kg, 09/11/22 13:00:00 EST, Dry Weight Start Date: 09/11/22 Status: Ordered Quantity: 1.0 Unit: tablet Repeat number: 1 PNV By Mouth, Daily, 0 Refills, Maintenance, 07/25/22 2:20:00 PM EDT, Partial fill upon patient request if the prescription is for a schedule II opioid drug. Start Date: 07/25/22 Status: Ordered Repeat number: 1 Multivitamins with Folic Acid 1 mg oral tablet 1 tablet, By Mouth, Daily, # 100 tablet, 2 Refills, Maintenance, 09/08/24 1:32:00 PM EST, [id number], Partial fill upon patient request if the prescription is for a schedule II opioid drug., 1 tablet By Mouth Daily, 170, cm, 09/11/22 13:00:00 EST, Height, 57.3, kg, 09/11/22 13:00:00 EST, Dry Weight Start Date: 09/08/24 Status: Ordered Quantity: 100.0 Unit: tablet Repeat number: 3 Problem List Condition Confirmation Course Effective Dates Status Health St atus Informant Family history of defect Confirmed Active Social History Social History Type Response Smoking Status Never (less than 100 in lifetime) entered on: 09/08/24 Sex Sex Representation Female (finding) Patient Care team information Care Team Personnel Name: Kay Parks MD Position: S Physician - Pediatrics Member Role: PCP Address: [address] [place] [address] Pediatric & Adolescent Medicine [address] Telecom: Care Team Related Persons Name: RALPH MARTINEZ Name: HONEY MÉNDEZ Name: JEFF MÉNDEZ Insurance Providers Guarantor [facility] Plan Information #: 1 Payer: [employer] Member Number: NA Policy Number: NA Group Number: [id number]
--- OUTSIDE RECORDS SUMMARY | 2024-12-01 08:08 | XMS_ITS | Encounter Summary ---
Author Organization [employer] Address [address] [facility] [address] [place] [address] Care Team Providers Care Proposal Manager Writer Name Role Phone Salud iRvas MD Primary Care Pro vider Encounter Details Date Type Department Care Team (Latest Contact Info) Description 11/19/2024 Travel Social History Tobacco Use Types Packs/Day Years [...] AM EDT documented as of this encounter Plan of Treatment Not on file documented as of this encounter Visit Diagnoses Not on filedocumented in this encounter Additional Health Concerns Assessment Noted Time PHQ-9 Depression Total Score: 8 06/10/20 1:17 PM EDT documented as of this encounter Care Teams Proposal Manager Writer Relationship Specialty Start Date End Date Salud Rivas MD [address] [place] [id number] PCP - General Internal Medicine 04/03/23 documented as of this encounter
--- OUTSIDE RECORDS SUMMARY | 2024-12-01 08:08 | XMS_ITS | Encounter Summary ---
Author Organization [employer] Address [address] [place] [address] Care Team Providers Care Tune Up Mechanic Name Role Phone Salud Rivas MD Primary Care Pro vider Reason for Visit * Reason Onset Date Comments Chart Prep 11/12/2024 Encounter Details Date Type Department Care Team ([facility] st Contact Info) Description 11/12/2024 Telephone [facility] [address] [place] [address] Salud Rivas MD [address] [place] [address] Chart Prep Social History Tobacco Use Types Packs/Day Years [...] encounter Miscellaneous Notes * Telephone Encounter - Tiffanie Gonzalez MA - 11/12/2024 2:56 PM EST Chart Prep Labs: not applicable Images: not applicable Vaccines due: Covid Due, Hep A Due, Hep B Due, and Flu Due Referrals: Not Applicable Screenings: PAP and HIV screening Overdue care gaps: Sbirt, SDOH, PHQ-9, and Oral Health Contacted pt in regards to upcoming PE appt with . Expressed in a detailed voice message that this provider does require/ recommend that the pt is to get undressed in order to conduct a proper Physical Exam. Given that a breast exam most likely will be performed. Wanted to give the pt a heads up before coming into this appointment and possibly refusing the service due to the pcp's preference in conducting PE. These visits are always chaperoned by pcp's ELINOR. Chart prep for upcoming appt with complete. LB documented in this encounter Plan of Treatment Not on file documented as of this encounter Visit Diagnoses Not on filedocumented in this encounter Additional Health Concerns Assessment Noted Time PHQ-9 Depression Total Score: 8 06/10/20 23 1:17 PM EDT documented as of this encounter Care Teams Tune Up Mechanic Relationship Specialty Start Date End Date Salud Rivas MD [address] [place] [id number] PCP - General Internal Medicine 04/03/23 documented as of this encounter
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
[2024-12-01 08:23] LABS: IDNOW Serial# 08D9AD1C; Strep A Nucleic Acid Negative (Negative)
[2024-12-01 08:46] LABS: Influenza A PCR NEGATIVE (Negative); Influenza B PCR NEGATIVE (Negative); Resp Syncy Virus RNA Qual PCR NEGATIVE (Negative); SARS COV2 PCR INHOUSE NEGATIVE (Negative)
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
[2024-12-01 09:20] VITALS: BP 97/58; PULSE 107; RESP 18; TEMP 36.8; O2SAT 97
== END 2024-12-01 09:23 | disposition home or self-care (01) ==
PROVIDERS: Emergency Provider Emergency Medicine
DX: J02.9 Acute pharyngitis, unspecified (principal); Z03.818 Encounter for observation for suspected exposure to other biological agents ruled out
CPT/HCPCS: 0241U; 87651; 99282; 99283

== ENCOUNTER 2025-01-13 05:51 | Emergency (ER) | payer MEDICAID, SELFPAY ==
--- NOTE | ~2025-01-13 | US_ITS ---
EXAMINATION: US , LIMITED CLINICAL INFORMATION: 26 weeks gestation. Nausea. Vomiting. Diarrhea. COMPARISON: None available. TECHNIQUE: Real-time transabdominal obstetric pelvic ultrasound performed using grayscale and color Doppler technique. FINDINGS: Limited examination demonstrated a single viable intrauterine gestation. The presentation is breech during the exam. The placenta is anterior. The heart rate is 153 beats per minutes. US/US OB limited IMPRESSION: Limited examination no dedicated size and dates nor anatomy. Viable intrauterine gestation on breech presentation. The cervix in the position of the placenta near the cervix is not documented. Electronically signed by: Keny Anderson MD 01/13/2025 08:56 AM EDT
[2025-01-13 06:00] VITALS: BP 106/62; PULSE 90; RESP 18; TEMP 36.6; O2SAT 95
[2025-01-13 06:26] LABS: MANUAL DIFF FLAG NO
[2025-01-13 06:27] LABS: Appearance Urine Clear; Color Urine Yellow; Glucose Urine UA Negative (Negative); Leukocyte Esterase Urine Negative (Negative); Nitrite Urine Negative (Negative); Specific Gravity - Urine 1.025 (1.005-1.025); Urine Blood Negative (Negative); Urine Ketones Trace mg/dL (Negative); Urine Protein Negative (Neg-Trace)
[2025-01-13 06:27] LABS: Basophils Percent Auto 0.2 % (0-2); Eosinophils Percent Auto 0.1 % (0-4); Hematocrit 35.6 % (37.0-47.0); Hemoglobin 12.6 g/dl (12.0-16.0); Imm Gran Abs Auto 0.06 X10*3/uL (0.00-0.03); Imm Gran Pct Auto 0.5 % (0.0-0.4); Lymphocytes Absolute Auto 0.7 X10*3/uL (1.2-4.9); Lymphocytes Percent Auto 6.3 % (20-40); Mean Corpuscular HGB Conc 35.4 g/dl (31.0-35.0); Mean Corpuscular Hemoglobin 34.2 pg (27.0-33.0); Mean Corpuscular Volume 96.7 fL (80.0-98.0); Mean Platelet Volume 10.4 fL (9.4-12.3); Monocytes Absolute Auto 0.4 X10*3/uL (0.1-1.2); Monocytes Percent Auto 3.8 % (2-11); Neutrophils Absolute Auto 10.1 x10*3/uL (2.0-8.3); Neutrophils Percent Auto 89.1 % (45-73); Platelet Count 197 X10*3/uL (160-400); Red Blood Count 3.68 X10*6/uL (4.20-5.50); Red Cell Distribution Width 13.2 % (11.0-16.0); White Blood Count 11.3 X10*3/uL (4.8-10.8)
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
[2025-01-13 06:55] LABS: Alanine Aminotransferase 9 U/L (0-31); Albumin Level 3.4 g/dL (3.5-5.0); Alkaline Phosphatase 99 U/L (39-117); Anion Gap 11 (12-20); Aspartate Amino Transferase 28 U/L (5-31); Bilirubin Total 0.4 mg/dL (0.0-1.0); Blood Urea Nitrogen 11 mg/dL (9-16); Calcium 8.5 mg/dL (8.4-10.2); Carbon Dioxide 23 mmol/L (22-29); Chloride 107 mmol/L (96-108); Creatinine Clr Calc Pharmacy 134.4; Estimated Glomerular Filt Rate > 60; Glucose Random 83 mg/dL (60-115); HCG Quantitative 13401 mIU/mL; Lipase 17 U/L (8-78); Magnesium 1.8 mg/dL (1.6-2.6); Potassium 3.7 mmol/L (3.3-5.1); Sodium 137 mmol/L (135-145); Total Protein 6.9 g/dL (6.5-8.0)
[2025-01-13 07:02] LABS: Influenza A PCR NEGATIVE (Negative); Influenza B PCR NEGATIVE (Negative); Resp Syncy Virus RNA Qual PCR NEGATIVE (Negative); SARS COV2 PCR INHOUSE NEGATIVE (Negative)
[2025-01-13] MEDS: Pyridoxine HCl (Vitamin B6) 50 MG TABLET 25 MG PO (07:30)
[2025-01-13] MEDS: 0.9 % Sodium Chloride 1,000 ML 999 ML IV (07:30)
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
[2025-01-13 09:42] VITALS: BP 125/69; PULSE 77; RESP 14; TEMP 36.8; O2SAT 97
[2025-01-13 09:44] VITALS: BP 125/69; PULSE 77; RESP 14; TEMP 36.8; O2SAT 97
[2025-01-13 09:50] VITALS: BP 111/70; PULSE 73; RESP 14; TEMP 36.8; O2SAT 97
[2025-01-13 10:57] VITALS: BP 113/65; PULSE 78; RESP 18; TEMP 37.1; O2SAT 97
== END 2025-01-13 11:05 | disposition short-term general hospital (02) ==
PROVIDERS: Physician Assistant; Emergency Provider Emergency Medicine
DX: O21.0 Mild hyperemesis gravidarum (principal); R10.31 Right lower quadrant pain; R19.7 Diarrhea, unspecified; Z3A.26 26 weeks gestation of pregnancy; Z03.818 Encounter for observation for suspected exposure to other biological agents ruled out
CPT/HCPCS: 0241U; 76815; 80053; 81003; 83690; 83735; 84702; 85025; 99285

== ENCOUNTER → 2025-01-13 08:07 | Outpatient (BNV) | payer MEDICAID, SELFPAY | PROVIDERS: Emergency Provider Emergency Medicine; Visit Provider Radiology Diagnostic Radiology | DX: R11.2 Nausea with vomiting, unspecified (principal); R19.7 Diarrhea, unspecified | CPT/HCPCS: 76815 ==

== ENCOUNTER 2025-05-22 12:19 | Emergency (ER) | payer MEDICAID, SELFPAY ==
--- NOTE | ~2025-05-22 | XR_ITS ---
CLINICAL HISTORY: cough, exposure to mice droppings 2 view chest x-ray Comparison: None provided Findings: The lungs are clear. Heart size is normal. No acute fracture. IMPRESSION: 1. No acute findings. This document has been electronically signed by: Temi Rojas MD on 05/22/2025 14:17:11
[2025-05-22 12:29] VITALS: BP 102/55; PULSE 47; RESP 16; TEMP 36.4; O2SAT 96; BMI 20.4
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
--- OUTSIDE RECORDS SUMMARY | 2025-05-22 13:04 | XMS_ITS | Encounter Summary ---
Author Organization [employer] Address [address] [place] [address] [place] [address] Care Team Providers Care Refining Engineer Name Role Phone Salud Rivas MD Primary Care Pro vider Reason for Visit * Reason Onset Date Comments Care Management 05/19/2025 C3[facility] follow up c all Encounter Details Date Type Department Care Team ([facility] st Contact Info) Description 05/19/2025 Telephone [facility] MEDICINE [address] [place] [address] Salud Rivas MD [address] [place] [address] Care Management ([facility] follow up call) Social History Tobacco Use Types Packs/Day Years Used Date Smoking Tobacco: Never Passive Smoke Exposure: Never Smokeless Tobacco: Never Alcohol Use Standard Drinks/Week Comments Yes 0 (1 standard drink = 0.6 oz pur e alcohol) social Depression Answer Date Recorded Patient Health Questionnaire-9 Score 8 06/10/2023 Housing Stability Answer Date Recorded What is your housing situation today? I have terry andrews 01/18/[address] you li ve. Do you have problems with any of the following? None of the above 01/18/2025 Food Insecurity Answer Date Recorded Within the past 12 months, y ou worried that your food would run out before you got money to buy more: Never True 01/18/2025 Within the past 12 months,th e food you bought just didn't last and you didn't have enough money to get more: Never True Transportation Answer Date Recorded In the past 12 months, has l ack of transportation kept you from medical appts, meetings, work or from getting things needed for daily living? No 01/18/2025 Utilities Answer Date Recorded In the past 12 months, has t he electric, gas, oil or water company threatened to shut off services in your home? No 01/18/2025 Depression Answer Date Recorded Patient Health Questionnaire-2 Score 3 06/10/2023 Internet Access Answer Date Recorded Internet Access Q1 Yes 01/18/2025 Internet Access Q2 Not on file 01/18/2025 Estimated Date of Delivery Comme nts Yes 04/17/2025 Based on [employer] VALORIE, [facility] Sex and Gender Information Value Date Recorded Sex Assigned at Female 08/27/2022 10:35 AM EDT Legal Sex Female 10:35 AM EDT Gender Identity Female 06/10/2023 11:53 AM EDT Sexual Orientation Straight 06/10/2023 11 :53 AM EDT documented as of this encounter Miscellaneous Notes * Telephone Encounter - Nelda Weems - 05/19/2025 2:03 PM EDT CM Nelda Weems RN placed outbound call to patient. Patient's name, and address confirmed.Patient states is doing well with no recent illnesses or emergency room visits. Patient and infant are doing well. Patient states that she is healing well and does not believe that she has a appointment scheduled. Assistant Associate Full Professor educated on importance of follow up and the timeframe of appointment, encouraged to call and schedule appointment. No further questions or concerns. CM reinforced direct contact information or CHW for any additional questions or concerns. Education provided on [facility] Ur[facility] Care located in [facility] of [facility]. Patient provided with after-hours line for [facility], , which offer night time triage service and option to transfer to [facility] [employer] provider if needed. Patient verbalizes understanding, and able to repeat back to senior writer. A follow up call will be placed within 1 month, patientagrees with plan. documented in this encounter Plan of Treatment Not on file documented as of this encounter Visit Diagnoses Not on filedocumented in this encounter Additional Health Concerns Assessment Noted Time PHQ-9 Depression Total Score: 8 06/10/20 23 1:17 PM EDT documented as of this encounter Care Teams Refining Engineer Relationship Specialty Start Date End Date Salud Rivas MD [address] [place] [id number] PCP - General Internal Medicine 04/03/23 Nelda Weems Assistant Associate Full Professor 02/16/25 documented as of this encounter
[2025-05-22 13:10] LABS: MANUAL DIFF FLAG NO
[2025-05-22 13:15] LABS: Hematocrit 36.5 % (37.0-47.0); Hemoglobin 12.1 g/dl (12.0-16.0); Imm Gran Abs Auto 0.02 X10*3/uL (0.00-0.03); Imm Gran Pct Auto 0.3 % (0.0-0.4); Lymphocytes Absolute Auto 1.9 X10*3/uL (1.2-4.9); Mean Corpuscular HGB Conc 33.2 g/dl (31.0-35.0); Mean Corpuscular Hemoglobin 31.3 pg (27.0-33.0); Mean Corpuscular Volume 94.6 fL (80.0-98.0); NRBC Abs Auto 0.000 X10*3/uL (0.0-0.012); NRBC Pct Auto 0.0 /100WBC (0.0-0.2); Platelet Count 223 X10*3/uL (160-400); Red Blood Count 3.86 X10*6/uL (4.20-5.50); White Blood Count 7.3 X10*3/uL (4.8-10.8)
[2025-05-22 13:17] LABS: Appearance Urine Clear; Glucose Urine UA Negative (Negative); PH 5.5 (5.0-9.0); Specific Gravity - Urine 1.020 (1.005-1.025); UMIC TRIGGER UACC YES; UPreg QC Valid YES
[2025-05-22 13:37] LABS: Alanine Aminotransferase 29 U/L (0-31); Albumin Level 4.7 g/dL (3.5-5.0); Alkaline Phosphatase 94 U/L (39-117); Anion Gap 14 (12-20); Aspartate Amino Transferase 29 U/L (5-31); Blood Urea Nitrogen 16 mg/dL (9-16); Calcium 9.1 mg/dL (8.4-10.2); Carbon Dioxide 24 mmol/L (22-29); Chloride 107 mmol/L (96-108); Creatinine Clr Calc Pharmacy 101.7; Estimated Glomerular Filt Rate > 60; Potassium 4.1 mmol/L (3.3-5.1); Sodium 141 mmol/L (135-145); Total Protein 7.2 g/dL (6.5-8.0)
[2025-05-22 14:04] VITALS: BP 94/51; PULSE 50; RESP 16; TEMP 36.8; O2SAT 98
[2025-05-22 14:53] VITALS: BP 94/51; PULSE 50; RESP 16; TEMP 36.8; O2SAT 98
== END 2025-05-22 14:54 | disposition home or self-care (01) ==
PROVIDERS: Nurse Practitioner Family; Emergency Provider Emergency Medicine
DX: B34.9 Viral infection, unspecified (principal); R51.9 Headache, unspecified; R05.9 Cough, unspecified
CPT/HCPCS: 36415; 71046; 80048; 80076; 81001; 81025; 83615; 85025; 99283

== ENCOUNTER → 2025-05-22 12:54 | Outpatient (BNV) | payer MEDICAID, SELFPAY | PROVIDERS: Emergency Provider Emergency Medicine; Visit Provider Radiology Diagnostic Radiology | DX: R05.9 Cough, unspecified (principal); W53.09XA Other contact with mouse, initial encounter | CPT/HCPCS: 71046 ==

== ENCOUNTER 2025-08-03 16:43 | Emergency (ER) | payer MEDICAID, SELFPAY ==
--- NOTE | ~2025-08-03 | XR_ITS ---
CLINICAL HISTORY: drop object on foot 3 view right foot Comparison: CR - XR FOOT RT MIN 3V - 08/03/25 17:32 EDT Findings: A large ankle effusion is present. There is a thin sclerotic density in the talar neck with no definite cortical disruption. No dislocation. No abnormal joint space narrowing. No radiopaque foreign body. IMPRESSION: 1. Large ankle effusion. Questionable talar neck fracture. 2. Correlation with the site of injury and maximum point tenderness will dictate the need for follow-up CT. This document has been electronically signed by: Rose Muñiz DO on 08/03/2025 18:04:51
--- NOTE | ~2025-08-03 | XR_ITS ---
CLINICAL HISTORY: dropped object on foot 3 view right foot Comparison: CR - XR ANKLE RT 2V - 08/03/25 17:30 EDT Findings: A large ankle effusion is present. There is a thin sclerotic density in the talar neck with no definite cortical disruption. No dislocation. No abnormal joint space narrowing. No radiopaque foreign body. IMPRESSION: 1. Large ankle effusion. Questionable talar neck fracture. 2. Correlation with the site of injury and maximum point tenderness will dictate the need for follow-up CT. This document has been electronically signed by: Rose Muñiz DO on 08/03/2025 18:04:34
[2025-08-03 17:02] VITALS: BP 108/54; PULSE 63; RESP 18; TEMP 37; O2SAT 96; BMI 17.5
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
== END 2025-08-03 23:31 | disposition left against medical advice (07) ==
LOC: HO.ED 23:07
PROVIDERS: Emergency Provider Emergency Medicine
DX: M79.671 Pain in right foot (principal)
CPT/HCPCS: 73600; 73630; 99281; 99283

== ENCOUNTER → 2025-08-03 17:30 | Outpatient (BNV) | payer MEDICAID, SELFPAY | PROVIDERS: Visit Provider Radiology Diagnostic Radiology | DX: M25.471 Effusion, right ankle (principal); W20.8XXA Other cause of strike by thrown, projected or falling object, initial encounter | CPT/HCPCS: 73600; 73630 ==

== ENCOUNTER 2025-10-14 02:35 | Emergency (ER) | payer MEDICAID, SELFPAY ==
--- NOTE | ~2025-10-14 | XR_ITS ---
CLINICAL HISTORY: sob 2 view chest x-ray Comparison: CR - XR CHEST 2V - 05/22/25 13:29 EDT Findings: No consolidation or effusion. Heart size is normal. No acute fracture. IMPRESSION: 1. No acute findings. This document has been electronically signed by: Jhony Carmona MD on 10/14/2025 03:31:04
[2025-10-14 02:36] VITALS: BP 127/65; PULSE 114; RESP 18; TEMP 36.7; O2SAT 94; BMI 18.2
[2025-10-14 03:01] LABS: IDNOW Serial# 58CA691E; Strep A Nucleic Acid Negative (Negative)
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
--- OUTSIDE RECORDS SUMMARY | 2025-10-14 03:23 | XMS_ITS | Encounter Summary ---
Author Organization [employer] Address [address] [facility] [facility] [address] [place] [address] Care Team Providers Care Retail Sales Vitamin Consultant Name Role Phone Salud Rivas MD Primary Care Pro vider Encounter Details Date Type Department Care Team (Late st Contact Info) Description 10/14/2025 Orders Only GENERIC EXTERNAL DATA DEPARTMENT Provider, Generic External Data Social History Tobacco Use Types Packs/Day Years [...] Internet Access Q2 Not on file 01/18/2025 Comments No Sex and Gender Information Value Date Recorded Sex Assigned at Female 08/27/2022 10:35 AM EDT Legal Sex Female 10:35 AM EDT Gender Identity Female 06/10/2023 11:53 AM EDT Sexual Orientation Straight 06/10/2023 11 :53 AM EDT documented as of this encounter Plan of Treatment Not on file documented as of this encounter Procedures Procedure Name Priority Date/Time Associated Diagnosis Comments STREP A NUCLEIC ACID Routine 10/14/2025 2:47 AM EST documented in this encounter Results * Strep A Nucleic Acid (10/14/2025 2:47 AM EST) IDNOW SERIAL# [id number] [facility] Strep A Nucleic Acid Negative Negative [facility] Comment:All test results mus t be correlated with clinical findings.This test has not been evaluated for monitoring treatment ofinfection.Additional follow-up testing using the culture method isrequired if the result is negative and clinical symptomspersist, or in the event of an acute rheumatic feveroutbreak. 10/14/2025 2:47 AM EST 10/14/2025 2:55 AM EST us Generic External Data Provider LAB MICROBIOLOGY - GENERAL ORDERABLES Final Result Performing Organization Address City/State/[facility] Co de Phone Number [facility] [address] [place] [address] [phone] documented in this encounter Visit Diagnoses Not on filedocumented in this encounter Additional Health Concerns Assessment Noted Time PHQ-9 Depression Total Score: 8 06/10/20 23 1:17 PM EDT documented as of this encounter Care Teams Retail Sales Vitamin Consultant Relationship Specialty Start Date End Date Salud Rivas MD [address] [place] [address] PCP - General Internal Medicine 04/03/23 Nelda Weems Jig Borer 02/16/25 documented as of this encounter
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
[2025-10-14 03:29] LABS: Resp Syncy Virus RNA Qual PCR NEGATIVE (Negative); SARS COV2 PCR INHOUSE NEGATIVE (Negative)
[2025-10-14 03:54] LABS: Appearance Urine Clear; Glucose Urine UA Negative (Negative); PH 6.5 (5.0-9.0); Specific Gravity - Urine >= 1.030 (1.005-1.025); UMIC TRIGGER UACC YES
[2025-10-14 04:05] LABS: UPreg QC Valid YES
[2025-10-14 04:14] VITALS: BP 105/64; PULSE 106; RESP 18; TEMP 37.4; O2SAT 97
== END 2025-10-14 04:15 | disposition home or self-care (01) ==
PROVIDERS: Emergency Provider Emergency Medicine
DX: J10.1 Influenza due to other identified influenza virus with other respiratory manifestations (principal); R05.9 Cough, unspecified; Z03.818 Encounter for observation for suspected exposure to other biological agents ruled out
CPT/HCPCS: 71046; 81001; 81025; 87637; 87651; 99282; 99283

== ENCOUNTER → 2025-10-14 03:02 | Outpatient (BNV) | payer MEDICAID, SELFPAY | PROVIDERS: Emergency Provider Emergency Medicine; Visit Provider Radiology Diagnostic Radiology | DX: R06.02 Shortness of breath (principal) | CPT/HCPCS: 71046 ==